=== PATIENT | female | born 1980 | race Two or more races ===

== ENCOUNTER 2019-02-08 22:44 | Emergency (ER) | payer MEDICAID ==
--- NOTE | 2019-02-09 00:05 | ER Document Report ---
ED General - General Chief Complaint: Cold Symptoms Stated Complaint: SORE THROAT Time Seen by Provider: 02/08/19 23:53 - HPI Notes: Patient is a 38-year-old female presents emergency department for evaluation of runny nose, cough, sore throat, congestion. She states her youngest daughter was just diagnosed with strep throat. No aleta fevers. No nausea or vomiting. She is eating and drinking normally. [id number] medications have been somewhat helpful, but she is concerned she could have something more significant. - Related Data Allergies/Adverse Reactions: No Known Allergies Allergy (Unverified 02/08/19 22:45) Past Medical History - General Information source: Patient - Social History Smoking Status: Current Every Day Smoker Frequency of alcohol use: None Family History: Reviewed & Not Pertinent Review of Systems - Review of Systems Constitutional: No symptoms reported EENT: See HPI Cardiovascular: No symptoms reported Respiratory: See HPI Gastrointestinal: No symptoms reported Genitourinary: No symptoms reported Musculoskeletal: No symptoms reported Skin: No symptoms reported Neurological/Psychological: No symptoms reported Physical Exam - Vital signs Vitals: Temp Pulse Resp BP Pulse Ox 98.6 F 88 18 136/83 H 97 02/08/19 22:59 02/08/19 22:59 02/08/19 22:59 02/08/19 22:59 02/08/19 22:59 - Notes Notes: Vital signs reviewed, please refer to chart. Head is normocephalic, atraumatic. Pupils equal round, reactive to light. Bilateral TMs are pearly paredes with good light reflex. Mild pharyngeal erythema without exudate. Mild tender anterior cervical adenopathy. Neck is supple without meningismus. Heart is regular rate and rhythm. Lungs are clear to auscultation bilaterally. Abdomen is soft, nontender, normoactive bowel sounds throughout. Extremities without cyanosis, clubbing. Posterior calves are nontender. Peripheral pulses are equal. Skin is warm and dry. Patient is awake, alert, neurological exam is nonfocal. Course - Re-evaluation Re-evalutation: 02/09/19 00:04 Patient presents emergency department for evaluation. Her findings and symptoms are most consistent with a simple URI. Because of exposure to streptococcal pharyngitis to her daughter, I am performing rapid strep. Will treat symptomatically if this is negative. We will continue to monitor. 02/09/19 00:56 Strep screen negative, culture pending. We will send her home with Sobia Beltran. She is felt with primary care, return to the ED with worsening. - Vital Signs Vital signs: Temp Pulse Resp BP Pulse Ox 98.6 F 88 18 136/83 H 97 02/08/19 22:59 02/08/19 22:59 02/08/19 22:59 02/08/19 22:59 02/08/19 22:59 Discharge - Discharge Clinical Impression: Pharyngitis Qualifiers: Pharyngitis/tonsillitis etiology: unspecified etiology Qualified Code(s): J02.9 - Acute pharyngitis, unspecified Upper respiratory infection Qualifiers: Pharyngitis/tonsillitis etiology: unspecified etiology Condition: Stable Disposition: HOME, SELF-CARE Instructions: Upper Respiratory Infection, or Child ([facility]) Additional Instructions: Your strep screen was negative. You will be contacted if is positive. Rest, stay well-hydrated. Tessalon Perles as needed for cough. Return the emergency department with worsening or new concerning symptoms of any sort. Forms: Return to Work
[2019-02-09 01:10] VITALS: BP 147/95
== END 2019-02-09 01:11 | disposition home or self-care (01) ==
LOC: ER 22:44
DX: J02.9 Acute pharyngitis, unspecified (principal); R59.0 Localized enlarged lymph nodes; R09.89 Other specified symptoms and signs involving the circulatory and respiratory systems; R05 Cough; F17.200 Nicotine dependence, unspecified, uncomplicated; Z20.818 Contact with and (suspected) exposure to other bacterial communicable diseases
CPT/HCPCS: 87070; 87880; 99283